=== PATIENT | female | born 1980 | race Caucasian/White ===

== ENCOUNTER 2016-12-22 20:42 | Observation (INO) | payer MEDICAID ==
[~2016-12-22] VITALS: Ht 157.5 cm; Wt 82.6 kg
[2016-12-22] MEDS ORDERED: PNV1TABL76 MT (22:35)
== END 2016-12-22 23:17 | disposition home or self-care (01) ==
LOC: L&D 20:42
PROVIDERS: ADMIT Obstetrics & Gynecology; ATTEND Obstetrics & Gynecology
DX: O36.8130 Decreased fetal movements, third trimester, not applicable or unspecified (principal); Z3A.35 35 weeks gestation of pregnancy
CPT/HCPCS: 76815; 76818; 99281; G0378

== ENCOUNTER 2017-01-10 22:18 | Inpatient (IN) | payer MEDICAID ==
[~2017-01-10] VITALS: Ht 157.5 cm; Wt 88.9 kg
[~2017-01-10 22:18] MED LIST: PNV1TABL76 MT
[2017-01-10] MEDS ORDERED: LACTATED RINGERS 250 ML IV SCH (22:31)
[2017-01-10] MEDS ORDERED: DEXT 5%/LR + PITOCIN 20UNITS/L 1,000 ML IV SCH (22:31)
[2017-01-10] MEDS ORDERED: MAGNESIUM 4 G PREMIX 100 ML IV SCH (22:45)
[2017-01-10] MEDS ORDERED: NALOXONE HCL 0.4 MG/ML 1ML VIAL IM PRN (22:45)
[2017-01-10] MEDS ORDERED: TERBUTALINE SULFATE 1MG/ML VIAL SUBCUT PRN (22:45)
[2017-01-10] MEDS ORDERED: METHYLERGONOVINE MALEATE 0.2 MG/ML IM PRN (22:45)
[2017-01-10] MEDS ORDERED: MAGNESIUM 20 G PREMIX (L & D) 500 ML IV SCH (22:45)
[2017-01-10] MEDS ORDERED: CARBOPROST TROMETHAMINE 250 MCG/ML AMPUL IM PRN (22:45)
[2017-01-10] MEDS ORDERED: FERR256T PO (23:16)
[2017-01-11 00:13] LABS: BASOPHILS % 0.7 % (0.0-2.0); CHLORIDE 109 mEq/L (98-107); EOSINOPHILS % 1.1 % (0.0-5.0); HEMATOCRIT. 34.9 % (36.0-48.0); HEMOGLOBIN. 12.3 g/dL (12.0-16.0); LYMPHOCYTES % 29.4 % (20.0-50.0); MEAN CORPUSCULAR HEMOGLOBIN 30.9 pg (28.0-32.0); MEAN CORPUSCULAR VOLUME 87.7 fL (81.0-99.0); MEAN PLATELET VOLUME 8.5 fl (7.4-10.4); MONOCYTES % 10.3 % (2.0-8.0); NEUTROPHILS % 58.5 % (40.0-76.0); PLATELET 136 x1000/uL (130-400); RED BLOOD CELL COUNT 3.98 mill/uL (4.2-5.4); RED CELL DISTRIBUTION WIDTH 15.2 % (11.6-14.6)
[2017-01-11 00:14] LABS: PARTIAL THROMBOPLASTIN TIME 27.5 sec (23.4-31.0)
[2017-01-11 00:15] LABS: CLARITY URINE CLEAR (CLEAR); COLOR URINE YELLOW (YELLOW); GLUCOSE URINE NEGATIVE (NEGATIVE); KETONES URINE NEGATIVE (NEGATIVE); LEUKOCYTE ESTERASE URINE 2+ (NEGATIVE); NITRITE URINE NEGATIVE (NEGATIVE); OCCULT BLOOD URINE 3+ (NEGATIVE); PH URINE 6.5 (4.5-8.0); PROTEIN URINE 1+ (NEGATIVE); SPECIFIC GRAVITY URINE 1.011 (1.005-1.030); UROBILINOGEN URINE 0.2 E.U./dL (0.2-1.0)
[2017-01-11 00:30] LABS: CARBON DIOXIDE 22 mEq/L (21-32)
[2017-01-11 00:47] LABS: *AMPHETAMINES SCREEN URINE NEGATIVE (NEGATIVE); *BARBITURATES SCREEN URINE NEGATIVE (NEGATIVE); *BENZODIAZEPINES SCREEN URINE NEGATIVE (NEGATIVE); *COCAINE SCREEN URINE NEGATIVE (NEGATIVE); CANNABINOID URINE SCREEN NEGATIVE (NEGATIVE); METHADONE URINE SCREEN NEGATIVE (NEGATIVE); OPIATES URINE SCREEN NEGATIVE (NEGATIVE); PHENCYCLIDINE URINE SCREEN NEGATIVE (NEGATIVE)
[2017-01-11] MEDS ORDERED: MORPHINE SULFATE/PF 1MG/ML 10ML AMP ONE (01:16)
[2017-01-11] MEDS ORDERED: MIDAZOLAM HCL 2 MG/2 ML VIAL ONE (01:16)
[2017-01-11] MEDS ORDERED: CEFAZOLIN 2000MG PREMIX 100 ML IV ONE (01:22)
[2017-01-11] MEDS ORDERED: ONDANSETRON HCL 4MG/2ML VIAL ONE (01:22)
[2017-01-11] MEDS ORDERED: PHENYLEPHRINE HCL 10 MG/ML 1ML (IV VIAL) IV ONE (01:22)
[2017-01-11] MEDS ORDERED: SODIUM CHLORIDE 0.9% 10ML VIAL ONE (01:22)
[2017-01-11] MEDS ORDERED: EPHEDRINE SULFATE 50MG/ML VIAL ONE (01:22)
[2017-01-11] MEDS ORDERED: OXYTOCIN 10 UNITS/ML 1ML ONE (01:22)
[2017-01-11] MEDS ORDERED: DEXAMETHASONE 4MG/ML 1ML VIAL ONE (01:22)
[2017-01-11] MEDS ORDERED: DEXT 5%/LR + PITOCIN 20UNITS/L 1,000 ML IV SCH (01:42)
[2017-01-11] MEDS ORDERED: MAGNESIUM 20 G PREMIX (L & D) 500 ML IV SCH (01:42)
[2017-01-11] MEDS ORDERED: HYDROCODONE/ACETAMINOPHEN 5/325MG TABLET PO PRN (01:45)
[2017-01-11] MEDS ORDERED: RHO(D) IMMUNE GLOBULIN 300 MCG/SYR IM PRN (01:45)
[2017-01-11] MEDS ORDERED: BISACODYL 10MG SUPP PR PRN (01:45)
[2017-01-11] MEDS ORDERED: IBUPROFEN 400MG TABLET PO PRN (01:45)
[2017-01-11] MEDS ORDERED: HYDROMORPHONE HCL/PF 2MG/ML CPJ IM PRN (01:45)
[2017-01-11] MEDS ORDERED: ONDANSETRON HCL 4MG/2ML VIAL IV PRN (03:45)
[2017-01-11] MEDS ORDERED: NALOXONE HCL 0.4 MG/ML 1ML VIAL IV PRN (03:45)
[2017-01-11] MEDS ORDERED: DIPHENHYDRAMINE 50MG/ML VIAL IV PRN (03:45)
[2017-01-11 04:29] LABS: HEPATITIS B SURFACE ANTIGEN NEGATIVE; RUBELLA IGG 73.9 IU/mL (4.99-10)
[2017-01-11 06:00] VITALS: BP 117/63
[2017-01-11 08:00] VITALS: BP 112/42
[2017-01-11] MEDS ORDERED: CARBOPROST TROMETHAMINE 250 MCG/ML AMPUL IM ONE (10:48)
[2017-01-11] MEDS ORDERED: INFLUENZA VIRUS VACCINE 0.5ML SYR IM ONE (12:00)
[2017-01-11] MEDS: KETOROLAC 30MG/ML VIAL IV SCH ×2 (12:49→18:40)
[2017-01-11 12:56] VITALS: BP 118/50
[2017-01-11 16:11] VITALS: BP 118/68
[2017-01-11 20:00] VITALS: BP 116/63
[2017-01-12 07:29] VITALS: BP 136/81
[2017-01-12 08:20] VITALS: BP 142/84
[2017-01-12 08:22] LABS: BASOPHILS % 0.6 % (0.0-2.0); EOSINOPHILS % 0.9 % (0.0-5.0); HEMATOCRIT. 29.2 % (36.0-48.0); HEMOGLOBIN. 10.4 g/dL (12.0-16.0); LYMPHOCYTES % 23.1 % (20.0-50.0); MEAN CORPUSCULAR HEMOGLOBIN 31.3 pg (28.0-32.0); MEAN CORPUSCULAR VOLUME 87.8 fL (81.0-99.0); MONOCYTES % 8.1 % (2.0-8.0); NEUTROPHILS % 67.3 % (40.0-76.0); PLATELET 137 x1000/uL (130-400); RED BLOOD CELL COUNT 3.33 mill/uL (4.2-5.4); RED CELL DISTRIBUTION WIDTH 15.3 % (11.6-14.6)
[2017-01-12 13:48] VITALS: BP 128/78
[2017-01-12] MEDS: IBUPROFEN 800MG TABLET PO PRN (15:47)
[2017-01-12] MEDS: SIMETHICONE 80MG TABLET CHEW PO SCH (20:19)
[2017-01-12 20:25] VITALS: BP 123/77
[2017-01-13] MEDS: IBUPROFEN 800MG TABLET PO PRN ×2 (02:16→10:17)
[2017-01-13 05:45] VITALS: BP 126/78
[2017-01-13 08:42] VITALS: BP 128/71
[2017-01-13] MEDS: SIMETHICONE 80MG TABLET CHEW PO SCH ×2 (10:10→13:12)
[2017-01-13 10:17] VITALS: BP 128/71
== END 2017-01-13 16:30 | disposition home or self-care (01) | DRG 540 ==
LOC: OBSVTOIN 22:18 → L&D 22:18 → 7EST PP/OB 01-11 05:26
PROVIDERS: ADMIT Obstetrics & Gynecology; ATTEND Obstetrics & Gynecology
PROC: 3E0234Z Introduction of Serum, Toxoid and Vaccine into Muscle, Percutaneous Approach (ICD-10-PCS; 2017-01-11)
PROC: 10D00Z1 Extraction of Products of Conception, Low, Open Approach (ICD-10-PCS; principal; 2017-01-11 03:10)
DX: O14.94 Unspecified pre-eclampsia, complicating childbirth (principal); D64.9 Anemia, unspecified; O99.02 Anemia complicating childbirth; O36.63X0 Maternal care for excessive fetal growth, third trimester, not applicable or unspecified; O34.219 Maternal care for unspecified type scar from previous cesarean delivery; O13.4 Gestational [pregnancy-induced] hypertension without significant proteinuria, complicating childbirth; Z83.3 Family history of diabetes mellitus; Z3A.37 37 weeks gestation of pregnancy; Z37.0 Single live birth; Z82.49 Family history of ischemic heart disease and other diseases of the circulatory system; Z23 Encounter for immunization
CPT/HCPCS: 36415; 80053; 80305; 81001; 81003; 83735; 84550; 85025; 85384; 85610; 85730; 86592; 86703; 86762; 86850; 86900; 87077; 87086; 87186; 87340; 88307; 90686; 99281; A4216; J0171; J0690; J1100; J1200; J1885; J2250; J2274; J2370; J2405; J2590; J3105; J3475; J7120; A4315